=== PATIENT | male | born 1980 | race Caucasian/White ===

== ENCOUNTER 2018-02-20 12:32 | Emergency (ER) | payer BC ==
[2018-02-20] MEDS ORDERED: LIDOCAINE 1% INJ-PF (10 MG/ML) 30 ML SDV INJ ONE ×2 (14:01→14:30)
[2018-02-20] MEDS ORDERED: DIPH/PERTUSS(ACELL)/TETANUS VAC/PF 0.5 ML SYR (>=10YO) IM ONE (14:01)
--- NOTE | 2018-02-20 14:07 | ER Document Report ---
HPI - HPI Patient complains to provider of: Facial laceration Quality of pain: Achy Pain Level: 2 Context: Patient was using a meat grinder to cut metal. Patient states that the meat grinder got bumped and came back cutting his face and nose. Patient is uncertain when his last tetanus immunization Associated Symptoms: Other - Laceration Exacerbated by: Denies Relieved by: Denies Similar symptoms previously: No Recently seen / treated by doctor: No - ROS ROS below otherwise negative: Yes Systems Reviewed and Negative: Yes All other systems reviewed and negative - CONSTITUTIONAL Constitutional: DENIES: Fever - GASTROINTESTINAL Gastrointestinal: DENIES: Nausea - DERM Skin Problems: Laceration Past Medical History - General Information source: Patient - Social History Smoking Status: Current Some Day Smoker Smoking Education Provided: Yes Frequency of alcohol use: None Drug Abuse: None Occupation: digital printer operator Lives with: Family Family History: Reviewed & Not Pertinent Patient has suicidal ideation: No Patient has homicidal ideation: No - Medical History Medical History: Negative Renal/ Medical History: Denies: Hx Peritoneal Dialysis Surgical Hx: Negative Vertical Provider Document - CONSTITUTIONAL Agree With Documented VS: Yes Exam Limitations: No Limitations General Appearance: WD/WN, No Apparent Distress - HEENT HEENT: Normocephalic Notes: Patient with 3-1/2 center laceration to right nasolabial sulcus - NECK Neck: Normal Inspection, Supple - RESPIRATORY Respiratory: No Respiratory Distress - MUSCULOSKELETAL/EXTREMETIES Musculoskeletal/Extremeties: MAEW - NEURO Level of Consciousness: Awake, Alert, Appropriate Motor/Sensory: No Motor Deficit - DERM Integumentary: Warm, Dry, Laceration - facial lac to nasolabial sulcus Course - Re-evaluation Re-evalutation: 02/20/18 14:31 Patient is requesting that Dr. Ryan be consulted for wound repair. Information Technology Specialist attempted to call office which was closed and tried to page Dr. Ryan, patient system is not working. Information Technology Specialist will attempt to contact him by private phone. 02/20/18 14:43 Information Technology Specialist has not been able to get in contact with Dr. Ryan 02/20/18 14:[address] Ryan who requested a pitcher be sent to him. He will then call back for consultation. 02/20/18 17:00 Dr. Ryan bedside for wound repair - Vital Signs Vital signs: Temp Pulse Resp BP Pulse Ox 98.2 F 68 16 143/93 H 94 02/20/18 12:43 02/20/18 12:43 02/20/18 12:43 02/20/18 12:43 02/20/18 12:43 Discharge - Discharge Clinical Impression: Facial laceration Qualifiers: Encounter type: initial encounter Qualified Code(s): S01.81XA - Laceration without foreign body of other part of head, initial encounter Condition: Stable Disposition: HOME, SELF-CARE Instructions: Facial Laceration ([facility]), Tetanus Immunization Given ([facility]) Additional Instructions: Return immediately for any new or worsening symptoms Followup with Dr Ryan as instructed Prescriptions: Amox Tr/Potassium Clavulanate [Augmentin 875-125 Tablet] 1 tab PO BID 10 Days tablet Hydrocodone/Acetaminophen [[place] 5-325 Tablet] 1 each PO Q4 PRN #10 tablet PRN Reason: Referrals: MACARIO RYAN MD [ACTIVE STAFF] - Follow up as needed
[2018-02-20] MEDS ORDERED: LIDOCAINE 1%/EPINEPHRINE INJ 20 ML VIAL INJ ONE (15:20)
[2018-02-20] MEDS ORDERED: SODIUM BICARBONATE 8.4% INJ 10 MEQ/10 ML DISP.SYRIN IV ONE (15:20)
[2018-02-20] MEDS ORDERED: AMOXICILLIN TR/POT CLAVULANATE 500-125 MG TAB PO ONE (17:33)
[2018-02-20 18:49] VITALS: BP 124/89
--- NOTE | 2018-02-20 22:06 | OPERATIVE REPORT E ---
Operative Report NAME: ROHAN DANIEL : 1980 AGE: 37Y DATE OF SURGERY: 02/20/2018 ROOM: PREOPERATIVE DIAGNOSIS: COMPLEX BRIDGE REPAIR CREW PERSON INJURY TO THE NOSE AND THE RIGHT UPPER LIP. POSTOPERATIVE DIAGNOSIS: COMPLEX BRIDGE REPAIR CREW PERSON INJURY TO THE NOSE AND THE RIGHT UPPER LIP. SURGEON: MACARIO RYAN JR., M.D. ANESTHESIA: 1% lidocaine with epinephrine and bicarb for anesthetic and hemostatic effects. The patient tolerated well. SPECIMENS: None. PROCEDURE/FINDINGS IN DETAIL: The patient was laid on the table in a supine position. He was prepped with Betadine solution and draped in a sterile aseptic manner. The patient had severe grind injury on his upper lip. It was a diagonal kind of injury that extended from the nostril sill all the way down to the white roll vermilion border. It was deep only several millimeters tearing through the mucosa. After we explored the area after anesthetizing with 1% lidocaine with epinephrine and bicarb for anesthetic and hemostatic effects, we then went ahead and debrided the wound. This was a grinding kind of injury and was grounded into the skin and into the wound, and into the depths of the wound. We had to go ahead and excise the margins of the wound to get a ribbon cleaner region to be able to close this, so we debrided by excising margins of the wound and down into the base of the wound. Now, we had a larger defect that we had to reconstruct, and a direct primary closure would not work for this because this would then cause too much distortion of the lip. We decided to go with an advancement flap reconstruction, which would allow us then to bring tissue into the area, take tension off of the closure, and give him the least amount of tension on closure and the best cosmetic effect. We went ahead and anesthetized the area, raised up flaps on both sides, and dissected underneath, maintaining the orbicularis haritha so that we now had a better area to be able to reconstruct. We irrigated prior to this with Betadine, saline solution with a 25 gauge needle and 10 mL syringe to thoroughly clean the wound. After the flaps were raised, we then went ahead and repaired in multiple layers, repairing the orbicularis haritha and the subcutaneous tissue, and then the deep dermis using 5-0 Vicryl sutures. After we placed these, we then went ahead and had good alignment of the skin margins and the least amount of distortion. We used a 4-0 PDS and sutured with knots being tied on the outside as a subcuticular stitch. After we completed this, in order to give some more reinforcement, the patient was going back to his job, we closed him with interrupted 6-0 Prolene sutures. After we completed this, please note that we did clean the wound with Betadine through each step until we did the skin closure. After we completed this part of the wound there was good alignment, good shape, and contour to the area with minimal amount of distortion. Now we turned out attention to the nose. We anesthetized the nose with 1% lidocaine with epinephrine and bicarb for anesthetic and hemostatic effects. Again, this was a grinding injury. There were grinding holloway and charred burning of the tissue and a small wedge resection had to be taken in order to get clean area to be able to suture to. This now left even a little bit more of a defect. Again, we used mobilization of the surrounding area in order to free up the tissue enough to reconstruct it. We used 5-0 Chromic sutures for the deeper tissue and inside the nose, because this was a vxiwtcp-mwm-tspduwy injury. This allowed us to line up the margin. Once the margin was lined up with Chromic sutures, we then went ahead and used 6-0 interrupted Prolene sutures. We then realigned the margin of the rim and then onto the actual alar area. After we completed this, there was a good contour and shape to the nares. After we completed this, we applied tincture of benzoin, Steri-Strips, bacitracin to the Chromic sutures that were within the nose, 2 x 2s, and then tape for a covering of the dressing. The patient tolerated the procedure well. There were no complications. DICTATING PHYSICIAN: MACARIO RYAN JR., M.D. [id number] PHY#: [id number] ID: [id number] JOB#: [id number] ACCT: [id number] cc:MACARIO RYAN JR., M.D. >
--- NOTE | 2018-02-20 22:11 | CONSULTATION REPORT E ---
Consultation Report NAME: ROHAN DANIEL : 1980 AGE: 37Y DATE: 02/20/2018 TO: MACARIO RYAN JR., M.D. FROM: Hamida MALIK, Requesting Physician REASON FOR CONSULTATION: This patient was seen in the emergency room. He had a complex injury to his left nares, as well as his right upper lip. I was consulted because of the complexity. CHIEF COMPLAINT: The patient's chief complaint is open lacerations and avulsions from a shear grinder operator helper. HISTORY OF PRESENT ILLNESS: The patient is a 37-year-old who was trying to cut metal from a roof at the [facility] and ended up having the shear grinder operator helper jump back and cut his lip and his nose, for which I was consulted. PAST MEDICAL HISTORY: Noncontributory. MEDICATIONS: None. ALLERGIES: No known drug allergies. SOCIAL HISTORY: The patient smokes several cigarettes a day. REVIEW OF SYSTEMS: Essentially negative. PHYSICAL EXAMINATION: The patient has a very complex, dirty, grinding type of injury that extends from his nostril sill diagonally across the upper lip ending at the (white roll) vermilion border. This is a complex dirty injury and extends down to the undersurface of the mucosa but it is not through and through on the upper lip, but it is just within several millimeters short of this. His nose; he has a wedge shaped shear grinder operator helper injury, again very contaminated just as the lip wound, but there is no tissue there, it is done from the shear grinder operator helper. ASSESSMENT: Complex injuries of the nose and right upper lip. PLAN: Reconstruction, this will be under separate dictation. Instructions were given to the patient to keep head elevated. No bending or straining. Do not smoke. Only soft diet and use a straw so it does not disrupt the reconstruction. He was told not to smoke because that will affect the healing process. Top dressing has to come off in 2 days, Steri-Strips off in about 5 days. Sutures to be removed about at least 7 days to 10 days. The patient understand these directives. He was given antibiotic Augmentin through the emergency room and a pain medication through the emergency room. He is to follow up in [place] where he lives. And, if there is any concerns he is to contact us. I will be in the office tomorrow if he has any problems before he leaves. He plans on leaving on Sunday to return back to [place]. DICTATING PHYSICIAN: MACARIO RYAN JR., M.D. [id number] PHY#: [id number] ID: [id number] JOB#: [id number] ACCT: [id number] cc:MACARIO RYAN JR., M.D. >
== END 2018-02-20 18:47 | disposition home or self-care (01) ==
LOC: ER 12:32
PROC: 0CQ0XZZ Repair Upper Lip, External Approach (ICD-10-PCS; principal; 2018-02-20)
PROC: 09QKXZZ Repair Nasal Mucosa and Soft Tissue, External Approach (ICD-10-PCS; 2018-02-20)
DX: S01.21XA Laceration without foreign body of nose, initial encounter (principal); S01.511A Laceration without foreign body of lip, initial encounter; W45.8XXA Other foreign body or object entering through skin, initial encounter; W22.8XXA Striking against or struck by other objects, initial encounter; W29.0XXA Contact with powered kitchen appliance, initial encounter; Y93.9 Activity, unspecified; Y92.9 Unspecified place or not applicable; F17.210 Nicotine dependence, cigarettes, uncomplicated
CPT/HCPCS: 99284; 90471; 90715; 12052; J3490 ×2